=== PATIENT | female | born 1945 | race Caucasian/White ===

== ENCOUNTER → 2018-02-10 13:48 | Outpatient (CLI) | payer MEDICARE, OTHER, SELFPAY ==
--- NOTE | 2018-02-10 | DI.MG.S_ITS ---
BILATERAL DIGITAL SCREENING MAMMOGRAM 3D/2D WITH CAD POST LUMPECTOMY: 02/10/2018 CLINICAL: Routine screening. Personal history of right breast cancer. Comparison is made to exams dated: 12/07/2016 mammogram, 11/21/2015 mammogram, and 11/18/2014 mammogram - [facility]. The tissue of both breasts is heterogeneously dense. This may lower the sensitivity of mammography. Current study was also evaluated with a Computer Aided Detection (CAD) system. There are benign post operative findings in the right breast. No significant masses, calcifications, or other findings are seen in either breast. There has been no significant interval change. IMPRESSION: There is no mammographic evidence of malignancy. A 1 year screening mammogram is recommended. This exam was interpreted at Station ID: [id number]. NOTE: For mammograms, a report in lay terms will be sent to the patient. Approximately 15% of breast malignancies will not be visualized mammographically. In the management of a palpable breast mass, a negative mammogram must not discourage biopsy of a clinically suspicious lesion. Electronically Signed By: Billy vallecillo/nahid:02/10/2018 18:31:40 copy to: Cristopher Villa letter sent: Normal Exam ACR BI-RADS Category 2: Benign Finding(s) 3342F
== END ==
PROVIDERS: Family Provider Obstetrics & Gynecology; PCP Internal Medicine; Visit Provider Internal Medicine
DX: Z12.31 Encounter for screening mammogram for malignant neoplasm of breast (principal); Z80.3 Family history of malignant neoplasm of breast
CPT/HCPCS: 77063; 77067

== ENCOUNTER → 2019-03-24 10:10 | Outpatient (CLI) | payer MEDICARE, OTHER, SELFPAY | PROVIDERS: Family Provider Obstetrics & Gynecology; PCP Internal Medicine; Referring Provider Internal Medicine; Visit Provider Internal Medicine | DX: M85.852 Other specified disorders of bone density and structure, left thigh (principal); Z78.0 Asymptomatic menopausal state; Z85.3 Personal history of malignant neoplasm of breast | CPT/HCPCS: 77080 ==

== ENCOUNTER → 2019-03-26 11:44 | Outpatient (CLI) | payer MEDICARE, OTHER, SELFPAY ==
--- NOTE | 2019-03-26 11:52 | DI.MG.S_ITS ---
Patient Name: KINSEY SMALL date: 1945 Sex: F Attending Physician: Tha Indications: Date: 03/26/2019 11:52 At the request of: JOHN LICEA Procedure: MM screening mammo BI BILATERAL DIGITAL SCREENING MAMMOGRAM 3D/2D WITH CAD POST LUMPECTOMY: 03/26/2019 CLINICAL: Routine screening. Personal history of breast cancer. Comparison is made to exams dated: 02/10/2018 mammogram, 12/07/2016 mammogram, 11/21/2015 mammogram, and 11/18/2014 mammogram - [facility]. The tissue of both breasts is heterogeneously dense. This may lower the sensitivity of mammography. Current study was also evaluated with a Computer Aided Detection (CAD) system. There are multiple fine calcifications in the right breast inferior lateral quadrant middle depth. These are more prominent. There is an irregular focal asymmetry in the superior medial left breast at posterior depth. There also is an oval asymmetry in the left breast posterior depth inferior region seen on the mediolateral oblique view only. No other significant masses or calcifications are seen in either breast. There are postsurgical changes of the right breast. IMPRESSION: INCOMPLETE: NEEDS ADDITIONAL IMAGING EVALUATION 1) The multiple fine calcifications in the right breast inferior lateral quadrant middle depth are indeterminate. Magnification views as well as additional views with possible ultrasound are recommended. 2) The irregular focal asymmetry in the superior medial left breast at posterior depth is indeterminate. Additional views with possible ultrasound are recommended. 3) The oval asymmetry in the left breast posterior depth inferior region seen on the mediolateral oblique view only is indeterminate. Additional views with possible ultrasound are recommended. This exam was interpreted at Station ID: [id number]. Continued Report - Page 2 of 2 Patient Name: KINSEY SMALL date: 1945 Sex: F Attending Physician: Tha Indications: Date: 03/26/2019 11:52 At the request of: JOHN LICEA Procedure: MM screening mammo BI NOTE: For mammograms, a report in lay terms will be sent to the patient. Approximately 15% of breast malignancies will not be visualized mammographically. In the management of a palpable breast mass, a negative mammogram must not discourage biopsy of a clinically suspicious lesion. Electronically Signed By: Billy Daley M.D. ecl/:03/26/2019 18:53:20 letter sent: Additional Imaging Needed ACR BI-RADS Category 0: Incomplete 3340F
[2019-03-26 13:24] LABS: Aspartate Aminotransferase 24 IU/L (14-36); BUN Creatinine Ratio 21.4 (6-22); Blood Urea Nitrogen 15 mg/dL (7-17); Calcium 10.2 mg/dL (8.4-10.2); Carbon Dioxide 27 mmol/L (22-32); Chloride 99 mmol/L (98-107); Cholesterol 209 mg/dL (140-199); Estimated Glomerular Filt Rate > 60.0 mL/min (>60); Glucose 106 mg/dL (80-110); HDL Cholesterol 60 mg/dL (40-60); HEMOLYSIS < 15 (0-50); LDL Cholesterol Calculated 120 mg/dL (<100); Potassium 4.2 mmol/L (3.4-5.1); Sodium 136 mmol/L (137-145); Triglycerides 146 mg/dL (35-150)
[2019-03-26 14:13] LABS: Vitamin B12 490 pg/mL (239-931)
[2019-03-26 14:17] LABS: TSH w/ Reflex to FT4 1.35 uIU/mL (0.47-4.68)
[2019-03-26 14:58] LABS: Hemoglobin A1C% w Est Avg Glu 5.1 % (4.0-6.0)
[2019-03-31 23:31] LABS: Albumin 4.1 g/dL (3.8-4.8); Alpha 1 Globulin 0.3 g/dL (0.2-0.3); Alpha 2 Globulin 0.7 g/dL (0.5-0.9); Beta 1 Globulin 0.4 g/dL (0.4-0.6); Gamma Globulin 1.3 g/dL (0.8-1.7); Protein, Total 7.1 g/dL (6.1-8.1)
== END ==
PROVIDERS: Family Provider Obstetrics & Gynecology; PCP Internal Medicine; Referring Provider Internal Medicine; Visit Provider Internal Medicine
DX: Z12.31 Encounter for screening mammogram for malignant neoplasm of breast (principal); M89.9 Disorder of bone, unspecified; E78.2 Mixed hyperlipidemia; D47.2 Monoclonal gammopathy; R73.01 Impaired fasting glucose; E03.9 Hypothyroidism, unspecified; E53.8 Deficiency of other specified B group vitamins
CPT/HCPCS: 36415; 77063; 77067; 80048; 80061; 82607; 83036; 84155; 84165; 84443; 84450

== ENCOUNTER → 2019-04-13 09:12 | Outpatient (CLI) | payer MEDICARE, OTHER, SELFPAY ==
--- NOTE | 2019-04-13 | DI.US.S_ITS ---
LIMITED ULTRASOUND OF LEFT BREAST: 04/13/2019 CLINICAL: Abn mammo. Comparison is made to exams dated: 04/13/2019 mammogram, 03/26/2019 mammogram, 02/10/2018 mammogram, 12/07/2016 mammogram, 11/21/2015 mammogram, and 11/18/2014 mammogram - [facility]. Ultrasound of the left breast 2-4 o'clock region was performed. No significant abnormalities were seen sonographically in the left breast. Specifically, no finding to correspond to the patient's left breast mammographic abnormality. IMPRESSION: SUSPICIOUS OF MALIGNANCY There is no sonographic correlate to the patient's left breast screening abnormality, however 6 month follow up mammogram is recommended to document stability. The right breast calcifications are suspicious for malignancy and stereotactic biopsy of the right breast is recommended. Findings and recommendations were discussed with the patient in person by Dr. Canseco at time of exam. This exam was interpreted at Station ID: [id number]. Electronically Signed By: Ashanti feng/:04/13/2019 16:23:11 letter sent: Biopsy Required Ultrasound BI-RADS: 4 Suspicious for malignancy
--- NOTE | 2019-04-13 | DI.MG.S_ITS ---
BILATERAL DIGITAL DIAGNOSTIC MAMMOGRAM 3D/2D WITH ADDITIONAL VIEWS POST LUMPECTOMY: 04/13/2019 CLINICAL: Additional evaluation requested from prior study. Comparison is made to exams dated: 03/26/2019 mammogram, 02/10/2018 mammogram, and 12/07/2016 mammogram - [facility]. The tissue of both breasts is heterogeneously dense. This may lower the sensitivity of mammography. There are new diffuse segmental fine calcifications in the right breast at 6 o'clock middle depth. These are seen in additional views. There is an irregular asymmetry in the left breast at 11 o'clock posterior depth. This is less prominent and not definitely seen in additional views. With focal spot compression, and additional views, the left breast posterior inferior abnormality seen on screening mammography resolves. No other significant masses or calcifications are seen in either breast. IMPRESSION: INCOMPLETE: NEEDS ADDITIONAL IMAGING EVALUATION The new diffuse segmental fine calcifications in the right breast at 6 o'clock middle depth are suspicious of malignancy. A right breast stereotactic biopsy is recommended. The irregular asymmetry in the left breast at 11 o'clock posterior depth is indeterminate. An ultrasound is recommended. This was performed immediately following this exam. This exam was interpreted at Station ID: [id number]. NOTE: For mammograms, a report in lay terms will be sent to the patient. Approximately 15% of breast malignancies will not be visualized mammographically. In the management of a palpable breast mass, a negative mammogram must not discourage biopsy of a clinically suspicious lesion. Electronically Signed By: Ashanti feng/:04/13/2019 16:20:59 ACR BI-RADS Category 0: Incomplete 3340F
== END ==
PROVIDERS: Family Provider Obstetrics & Gynecology; PCP Internal Medicine; Referring Provider Internal Medicine; Visit Provider Internal Medicine
DX: R92.8 Other abnormal and inconclusive findings on diagnostic imaging of breast (principal); R92.1 Mammographic calcification found on diagnostic imaging of breast; N64.89 Other specified disorders of breast
CPT/HCPCS: 76642; 77066; G0279

== ENCOUNTER 2019-10-14 11:25 | Day surgery (SDC) | payer MEDICARE, OTHER, SELFPAY ==
[2019-10-14] VITALS (8 sets, daily range): BP systolic 87–119; BP diastolic 58–71; PULSE 61–67; RESP 10–15; TEMP 36.3–36.7; O2SAT 93–98; BMI 22.3
[2019-10-14 12:47] LABS: COVID19 -Nasal RAPID Negative (Negative)
[2019-10-14] MEDS: SODIUM CHLORIDE 0.9% 1,000 ML 84 ML IV (13:47)
--- NOTE | 2019-10-14 13:47 | SUR.PREOP ---
Patient Covid-19 test negative. Pre-op complete.
--- NOTE | 2019-10-14 14:14 | PM.HP.1 ---
History of Present Illness History of Present Illness Date Patient Seen: 10/14/19 Chief complaint: SDC Narrative: Screening Patient History Family & Social History Social History: household members family Tobacco & Substance use: Smoking Status Never smoker alcohol intake never Substance Use Type does not use Meds Home Medications and Allergies Home Medications Medication Instructions Recorded Confirmed Type alendronate [Fosamax] 70 mg PO Q7D@0730 #0 09/11/11 10/14/19 History aspirin 81 mg PO QDAY #0 09/11/11 10/14/19 History pravastatin 40 mg/day 10/14/19 History Allergies Allergy/AdvReac Type Severity Reaction Status Date / Time No Known Drug Allergies Allergy Verified 10/14/19 13:09 Exam Vital Signs (past 8 hours): - 10/14/19 13:13 Temperature 98.1 F Pulse Rate 67 Respiratory Rate 14 Blood Pressure 119/71 Pulse Oximetry 98 Oxygen Delivery Method Room Air Narrative Exam Narrative: Oropharynx free of lesions Chest clear to auscultation percussion Cardiac exam reveals no S3 or murmur Objective Labs Labs: Laboratory Results - last 24 hr 10/14/19 11:45 COVID-19 PCR Negative Assessment & Plan Assessment & Plan narrative: History of polyps with need for follow-up colonoscopy. Risks, benefits, alternatives have been explained.
--- NOTE | 2019-10-14 14:19 | PM.OP.ENDO ---
Operative Date/Time/Diagnoses Date of procedure: 10/14/19 Pre-op diagnosis: See indication and findings Procedure & Clinicians Study performed: Colonoscopy Same procedure as scheduled: Yes Indications: History of polyps Surgeon: Page López Procedure Notes Procedure in detail: After informed consent was obtained the patient was placed in left lateral decubitus position. Video colonoscope was introduced the rectum and slowly advanced cecum. Preparation was good. On slow withdrawal mucosa was carefully examined. Scope was removed. The patient tolerated procedure well. Blood loss none Complications none Sedation Total sedation time 17 minutes Versed 4 mg fentanyl 200 right g IV titration Findings 1. Scattered left-sided diverticulosis 2. Otherwise negative colonoscopy to cecum She will need follow-up colonoscopy in 7-10 years.
[2019-10-14] MEDS: fentaNYL 250 MCG/5 ML INJ IV (14:21)
[2019-10-14] MEDS: MIDAZOLAM 5 MG/5 ML VIAL IV (14:21)
== END 2019-10-14 16:05 | disposition home or self-care (01) ==
PROVIDERS: Family Provider Obstetrics & Gynecology; PCP Internal Medicine; Referring Provider Internal Medicine; Visit Provider Internal Medicine Gastroenterology
PROC: 0DJD8ZZ Inspection of Lower Intestinal Tract, Via Natural or Artificial Opening Endoscopic (ICD-10-PCS; CPT 45378; principal; 2019-10-14 14:00)
DX: Z12.11 Encounter for screening for malignant neoplasm of colon (principal); Z86.010 Personal history of colon polyps; K57.30 Diverticulosis of large intestine without perforation or abscess without bleeding
CPT/HCPCS: G0105; 87635; J2250; J3010

== ENCOUNTER → 2020-03-15 11:10 | Outpatient (CLI) | payer MEDICARE, OTHER, SELFPAY ==
[2020-03-15] MEDS: COVID-19 VACC #1, MRNA(MOD) 100 MCG/0.5 ML VIAL IM (11:20)
== END ==
PROVIDERS: Family Provider Obstetrics & Gynecology; PCP Internal Medicine; Visit Provider Internal Medicine
DX: Z23 Encounter for immunization (principal)
CPT/HCPCS: 0011A; 91301

== ENCOUNTER → 2020-04-12 11:09 | Outpatient (CLI) | payer MEDICARE, OTHER, SELFPAY ==
[2020-04-12] MEDS: COVID-19 VACC #2, MRNA(MOD) 100 MCG/0.5 ML VIAL IM (11:23)
== END ==
PROVIDERS: Family Provider Obstetrics & Gynecology; PCP Internal Medicine; Visit Provider Internal Medicine
DX: Z23 Encounter for immunization (principal)
CPT/HCPCS: 0012A; 91301

== ENCOUNTER → 2020-07-13 18:30 | Outpatient (ROUT) | payer MEDICARE, OTHER, SELFPAY ==
[2020-07-13 18:58] LABS: Aspartate Aminotransferase 30 IU/L (14-36); BUN Creatinine Ratio 23.4 (6-22); Blood Urea Nitrogen 15 mg/dL (7-17); Calcium 10.2 mg/dL (8.4-10.2); Carbon Dioxide 27 mmol/L (22-32); Chloride 104 mmol/L (98-107); Cholesterol 197 mg/dL (140-199); Estimated Glomerular Filt Rate > 60.0 mL/min (>60); Glucose 89 mg/dL (80-110); HDL Cholesterol 76 mg/dL (40-60); HEMOLYSIS < 15 (0-50); LDL Cholesterol Calculated 98 mg/dL (<100); Potassium 4.2 mmol/L (3.4-5.1); Sodium 139 mmol/L (137-145); Triglycerides 114 mg/dL (35-150)
== END ==
PROVIDERS: Family Provider Obstetrics & Gynecology; PCP Internal Medicine; Visit Provider Internal Medicine
DX: E78.2 Mixed hyperlipidemia (principal)
CPT/HCPCS: 80048; 80061; 84450

== ENCOUNTER → 2020-11-23 11:40 | Outpatient (CLI) | payer MEDICARE, OTHER, SELFPAY ==
--- NOTE | 2020-11-23 11:43 | DI.MG.S_ITS ---
BILATERAL DIGITAL SCREENING MAMMOGRAM 3D/2D WITH CAD: 11/23/2020 CLINICAL: Routine screening. Breast cancer. Comparison is made to exams dated: 10/09/2019 mammogram, [place] [facility] [place]13[place]2019 mammogram, 03/26/2019 mammogram, 02/10/2018 mammogram - [facility], and 10/09/2019 [place] [facility] [place] The tissue of both breasts is heterogeneously dense. This may lower the sensitivity of mammography. Current study was also evaluated with a Computer Aided Detection (CAD) system. There are benign post operative findings in the right breast. There also is a biopsy clip in the left breast. No significant masses, calcifications, or other findings are seen in either breast. There has been no significant interval change. IMPRESSION: BENIGN There is no mammographic evidence of malignancy. A 1 year screening mammogram is recommended. This exam was interpreted at Station ID: [id number]. NOTE: For mammograms, a report in lay terms will be sent to the patient. Approximately 15% of breast malignancies will not be visualized mammographically. In the management of a palpable breast mass, a negative mammogram must not discourage biopsy of a clinically suspicious lesion. Electronically Signed By: Travon navarrete/nahid:11/24/2020 08:33:52 letter sent: Normal Exam ACR BI-RADS Category 2: Benign Finding(s) 3342F
== END ==
PROVIDERS: Family Provider Obstetrics & Gynecology; PCP Internal Medicine; Referring Provider Internal Medicine; Visit Provider Internal Medicine
DX: Z12.31 Encounter for screening mammogram for malignant neoplasm of breast (principal); Z85.3 Personal history of malignant neoplasm of breast
CPT/HCPCS: 77063; 77067

== ENCOUNTER → 2020-12-30 11:32 | Outpatient (CLI) | payer MEDICARE, OTHER, SELFPAY ==
[2020-12-30] MEDS: COVID-19 VACC #3, MRNA(MOD) 50 MCG/0.25 ML VIAL IM (11:41)
== END ==
PROVIDERS: Family Provider Obstetrics & Gynecology; PCP Internal Medicine; Visit Provider Internal Medicine
DX: Z23 Encounter for immunization (principal)
CPT/HCPCS: 0013A; 91301

== ENCOUNTER → 2021-10-30 10:09 | Outpatient (CLI) | payer MEDICARE, OTHER, SELFPAY ==
[2021-10-30 11:13] LABS: Hemoglobin A1C% w Est Avg Glu 5.2 % (4.0-6.0)
[2021-10-30 11:17] LABS: Hematocrit 38.4 % (36-46); Hemoglobin 13.2 g/dL (12.0-16.0); Mean Corpuscular HGB Conc 34.4 % (30-36); Mean Corpuscular Hemoglobin 30.1 PG (26-34); Mean Corpuscular Volume 87.6 fL (80-100); Platelet Count 225 X10^3/uL (150-400); Red Blood Cell Count 4.38 X10^6/uL (4.0-5.2); Red Cell Distribution Width 13.4 % (11.6-14.8); White Blood Cell Count 4.5 X10^3/uL (4.5-11.0)
[2021-10-30 11:52] LABS: Alanine Aminotransferase 16 IU/L (<35); Albumin 4.3 g/dL (3.5-5.0); Albumin Globulin Ratio 1.3 (1.0-2.8); Alkaline Phosphatase 47 U/L (38-126); Aspartate Aminotransferase 31 IU/L (14-36); Bilirubin Total 0.9 mg/dL (0.2-1.3); Blood Urea Nitrogen 12 mg/dL (7-17); Calcium 9.4 mg/dL (8.4-10.2); Carbon Dioxide 25 mmol/L (22-32); Chloride 98 mmol/L (98-107); Cholesterol 193 mg/dL (140-199); Estimated Glomerular Filt Rate > 60 mL/min (>60); Globulin 3.3 g/dL (1.7-4.1); Glucose 85 mg/dL (80-110); HDL Cholesterol 69 mg/dL (40-60); HEMOLYSIS < 15 (0-50); LDL Cholesterol Calculated 113 mg/dL (<100); Potassium 4.1 mmol/L (3.4-5.1); Sodium 134 mmol/L (137-145); Total Protein 7.6 g/dL (6.3-8.2); Triglycerides 56 mg/dL (35-150)
[2021-10-30 12:17] LABS: TSH w/ Reflex to FT4 1.77 uIU/mL (0.47-4.68)
[2021-10-30 12:31] LABS: Vitamin B12 368 pg/mL (239-931)
[2021-10-30 16:50] LABS: Vitamin D 25 Hydroxy (D3) 32.7 ng/mL (30.0-100.0)
[2021-11-01 13:08] LABS: Albumin 3.9 g/dL (2.9-4.4); Alpha-1-Globulin 0.2 g/dL (0.0-0.4); Alpha-2-Globulin 0.6 g/dL (0.4-1.0); Gamma Globulin 1.1 g/dL (0.4-1.8); Globulin Total 2.8 g/dL (2.2-3.9); Protein, Total 6.7 g/dL (6.0-8.5)
== END ==
PROVIDERS: Family Provider Obstetrics & Gynecology; PCP Internal Medicine; Referring Provider Internal Medicine; Visit Provider Internal Medicine
DX: E78.2 Mixed hyperlipidemia (principal); R73.01 Impaired fasting glucose; M85.80 Other specified disorders of bone density and structure, unspecified site; E53.8 Deficiency of other specified B group vitamins; G62.9 Polyneuropathy, unspecified; R77.9 Abnormality of plasma protein, unspecified
CPT/HCPCS: 36415; 80053; 80061; 82306; 82607; 83036; 84155; 84165; 84443; 85027

== ENCOUNTER → 2021-12-06 14:48 | Outpatient (CLI) | payer MEDICARE, OTHER, SELFPAY ==
--- NOTE | 2021-12-06 | DI.MG.S_ITS ---
BILATERAL DIGITAL SCREENING MAMMOGRAM 3D/2D WITH CAD: 12/06/2021 CLINICAL: Routine screening. Personal history of right breast cancer. Comparison is made to exams dated: 11/23/2020 mammogram - [facility], 10/09/2019 mammogram, and 09/25/2019 mammogram - [facility]. Both breasts are heterogeneously dense, which may obscure small masses (category c / 51-75% glandular tissue). Current study was also evaluated with a Computer Aided Detection (CAD) system. There are benign calcifications in both breasts. There also are benign post operative findings and biopsy clip in the right breast. Additionally, there is a biopsy clip in the left breast. No significant masses, calcifications, or other findings are seen in either breast. There has been no significant interval change. IMPRESSION: BENIGN There is no mammographic evidence of malignancy. A 1 year screening mammogram is recommended. This exam was interpreted at Station ID: [id number]. NOTE: For mammograms, a report in lay terms will be sent to the patient. Approximately 15% of breast malignancies will not be visualized mammographically. In the management of a palpable breast mass, a negative mammogram must not discourage biopsy of a clinically suspicious lesion. Electronically Signed By: Ashanti feng/nahid:12/06/2021 17:22:27 letter sent: Normal Exam ACR BI-RADS Category 2: Benign Finding(s) 3342F
== END ==
PROVIDERS: Family Provider Obstetrics & Gynecology; PCP Internal Medicine; Referring Provider Internal Medicine; Visit Provider Internal Medicine
DX: Z12.31 Encounter for screening mammogram for malignant neoplasm of breast (principal); Z85.3 Personal history of malignant neoplasm of breast
CPT/HCPCS: 77063; 77067

== ENCOUNTER → 2022-02-21 10:13 | Outpatient (CLI) | payer MEDICARE, OTHER, SELFPAY ==
--- NOTE | 2022-02-21 10:15 | DI.US.S_ITS ---
ULTRASOUND OF RIGHT BREAST AND AXILLA: 02/21/2022 CLINICAL: Palpable right breast lump. Comparison is made to exams dated: 02/21/2022 mammogram, 12/06/2021 mammogram, 11/23/2020 mammogram - [facility], 09/25/2019 ultrasound, and 09/25/2019 mammogram - [facility]. Color flow and real-time ultrasound of the right breast axilla were performed. 1.5 x 0.9 x 0.8cm dystrophic calcification is seen corresponding to mammographic finding at site of palpable abnormality, seen to be stable from prior mammogram. No significant abnormalities were seen sonographically in the right axilla. IMPRESSION: BENIGN There is no sonographic evidence of malignancy. Stable 1.5cm dystrophic calcification corresponding to palpable abnormality and mammogram. Return to annual mammogram screening schedule is recommended. Patient was advised to return for re-imaging if she or her doctor feels any other new or enlarging abnormality on clinical exam. This exam was interpreted at Station ID: [id number]. Electronically Signed By: Raúl Carroll M.D. lc/:02/21/2022 11:12:28 letter sent: Clinical Evaluation Ultrasound BI-RADS: 2 Benign
--- NOTE | 2022-02-21 10:34 | DI.MG.S_ITS ---
Procedure: MM diagnostic mammo unilat RT UNILATERAL RIGHT DIGITAL DIAGNOSTIC MAMMOGRAM 3D/2D: 02/21/2022 CLINICAL: Palpable right breast lump. Comparison is made to exams dated: 11/23/2020 mammogram - [facility], 10/09/2019 mammogram, 09/25/2019 ultrasound, 09/25/2019 ultrasound, and 09/25/2019 mammogram - [facility]. The right breast is heterogeneously dense, which may obscure small masses (category c / 51-75% glandular tissue). The patient is status post lumpectomy right breast. The right breast has post- operative findings. No significant masses, calcifications, or other findings are seen in the breast. IMPRESSION: INCOMPLETE: NEEDS ADDITIONAL IMAGING EVALUATION Corresponding to the palpable marker is a 1.5cm area of dystrophic calcification, stable from prior imaging, adjacent to the lumpectomy changes. Ultrasound is recommended, report to follow. This exam was interpreted at Station ID: [id number]. NOTE: For mammograms, a report in lay terms will be sent to the patient. Approximately 15% of breast malignancies will not be visualized mammographically. In the management of a palpable breast mass, a negative mammogram must not discourage biopsy of a clinically suspicious lesion. Electronically Signed By: Raúl Carroll M.D. lc/:02/22/2022 11:03:41 Continued Report - Page 2 of 2 Patient Name: KINSEY SMALL date: 1945 Sex: F Attending Physician: Tha Indications: Date: 02/21/2022 10:18 At the request of: JOHN LICEA Procedure: MM diagnostic mammo unilat RT ACR BI-RADS Category 0: Incomplete 3340F
== END ==
PROVIDERS: Family Provider Obstetrics & Gynecology; PCP Internal Medicine; Referring Provider Internal Medicine; Visit Provider Internal Medicine
DX: R92.1 Mammographic calcification found on diagnostic imaging of breast (principal); R92.8 Other abnormal and inconclusive findings on diagnostic imaging of breast; N63.10 Unspecified lump in the right breast, unspecified quadrant; Z85.3 Personal history of malignant neoplasm of breast
CPT/HCPCS: 76642; 77065; G0279

== ENCOUNTER → 2023-07-30 11:48 | Outpatient (CLI) | payer MEDICARE, OTHER, SELFPAY ==
[2023-07-30 14:51] LABS: Hematocrit 37.9 % (36-46); Hemoglobin 12.8 g/dL (12.0-16.0); Mean Corpuscular HGB Conc 33.8 % (30-36); Mean Corpuscular Hemoglobin 30.1 PG (26-34); Mean Corpuscular Volume 89.1 fL (80-100); Platelet Count 247 X10^3/uL (150-400); Red Blood Cell Count 4.26 X10^6/uL (4.0-5.2); Red Cell Distribution Width 13.4 % (11.6-14.8); White Blood Cell Count 5.8 X10^3/uL (4.5-11.0)
[2023-07-30 15:08] LABS: Alanine Aminotransferase 16 IU/L (<35); Albumin 4.3 g/dL (3.5-5.0); Albumin Globulin Ratio 1.6 (1.0-2.8); Alkaline Phosphatase 52 U/L (38-126); Aspartate Aminotransferase 25 IU/L (14-36); BUN Creatinine Ratio 16.7 (6-22); Bilirubin Total 0.6 mg/dL (0.2-1.3); Blood Urea Nitrogen 13 mg/dL (7-17); Calcium 9.7 mg/dL (8.4-10.2); Carbon Dioxide 29 mmol/L (22-32); Chloride 106 mmol/L (98-107); Cholesterol 201 mg/dL (140-199); Estimated Glomerular Filt Rate > 60 mL/min (>60); Globulin 2.7 g/dL (1.7-4.1); Glucose 77 mg/dL (80-110); HDL Cholesterol 77 mg/dL (40-60); HEMOLYSIS < 15 (0-50); LDL Cholesterol Calculated 109 mg/dL (<100); Potassium 4.8 mmol/L (3.4-5.1); Sodium 140 mmol/L (137-145); Triglycerides 77 mg/dL (35-150)
== END ==
PROVIDERS: Family Provider Obstetrics & Gynecology; PCP Internal Medicine; Referring Provider Internal Medicine; Visit Provider Internal Medicine
DX: E78.2 Mixed hyperlipidemia (principal); Z85.3 Personal history of malignant neoplasm of breast; M85.80 Other specified disorders of bone density and structure, unspecified site
CPT/HCPCS: 36415; 80053; 80061; 85027

== ENCOUNTER → 2023-08-12 14:11 | Outpatient (CLI) | payer MEDICARE, OTHER, SELFPAY ==
--- NOTE | 2023-08-12 14:14 | DI.RAD.S_ITS ---
PROCEDURE: XR DEXA AXIAL SKELETON INDICATIONS: postmenopausal COMPARISON: [facility], CR, XR DEXA AXIAL SKELETON, 03/24/2019, 10:30. FINDINGS: Lumbar Spine: Bone mineral density 0.931 g/cm2, T score -0.4, compared to -1.5. This is measuring L1-L2 only for direct comparison to prior exam. Left Hip: Bone mineral density 0.754 g/cm2, T score -1.5, unchanged. Left Femoral Neck: Bone mineral density 0.63 a g/cm2, T score -1.9, compared to -2.0. Right Hip: Bone mineral density 0.711 g/cm2, T score -1.9, compared to -1.8. Right Femoral Neck: Bone mineral density 0.625 g/cm2, T score -2.0, compared to -1.9. Fracture Risk Calculation (when applicable): 10-year fracture risk of a major osteoporotic fracture 13% and of a hip fracture 3.5% compared to 11.7% and 2.8% respectively. (T score greater or equal to -1.0 to: NORMAL) (T score from -1.1 to -2.4: OSTEOPENIA) (T score less than or equal to -2.5: OSTEOPOROSIS) IMPRESSION: Relatively stable exam demonstrating the most prominent osteopenia within the left femoral neck, right hip/femoral neck. Lumbar spine shows improved bone mineral density. Follow-up guidelines as follows: Osteoporosis: Consider a repeat DEXA and Vertebral Fracture Assessment (VFA) exam in 2 years or sooner if medically necessary, to reassess this patient's status. Osteopenia: Consider a repeat DEXA in 2-3 years to reassess this patient's status, or if there is a new clinical indication. Normal: Consider a repeat DEXA in 5 years or sooner, or if there is a new clinical indication. All treatment decisions require clinical judgment and consideration of individual patient factors, including patient preferences, comorbidities, previous drug use, risk factors not captured in the FRAX model (e.g., frailty, falls, vitamin D deficiency, increased bone turnover, interval significant decline in bone density ) and possible under- or over-estimation of fracture risk by FRAX. In addition, the NOF Guide recommends that FDA-approved medical therapies be considered in postmenopausal women and men age >= 50 years with a: * Hip or vertebral (clinical or morphometric) fracture * T-score of <=-2.5 at the spine or hip * Ten-year fracture probability by FRAX of >= 3% for hip fracture or >=20% for major osteoporotic fracture. People with diagnosed cases of osteoporosis or at high risk for fracture should have regular bone mineral density tests. For patients eligible for Medicare, routine testing is allowed once every 2 years. The testing frequency can be increased to one year for patients who have rapidly progressing disease, those who are receiving or discontinuing medical therapy to restore bone mass, or have additional risk factors. Dictated by: Amanda Nuñez M.D. on 08/12/2023 at 17:30 Approved by: Amanda Nuñez M.D. on 08/12/2023 at 17:33
--- NOTE | 2023-08-12 14:14 | DI.MG.S_ITS ---
BILATERAL DIGITAL SCREENING MAMMOGRAM 3D/2D WITH CAD: 08/12/2023 CLINICAL: Routine screening. Personal history of right breast cancer. Comparison is made to exams dated: 12/06/2021 mammogram, 11/23/2020 mammogram - [facility], and 09/25/2019 mammogram - [facility]. Both breasts are heterogeneously dense, which may obscure small masses (category c / 51-75% glandular tissue). Current study was also evaluated with a Computer Aided Detection (CAD) system. There are benign calcifications in both breasts. There also are benign post operative findings and biopsy clip in the right breast. Additionally, there is a biopsy clip in the left breast. No significant masses, calcifications, or other findings are seen in either breast. There has been no significant interval change. IMPRESSION: BENIGN There is no mammographic evidence of malignancy. A 1 year screening mammogram is recommended. This exam was interpreted at Station ID: [id number]. NOTE: For mammograms, a report in lay terms will be sent to the patient. Approximately 15% of breast malignancies will not be visualized mammographically. In the management of a palpable breast mass, a negative mammogram must not discourage biopsy of a clinically suspicious lesion. Electronically Signed By: Raúl mora/nahid:08/12/2023 15:04:29 letter sent: Normal Exam ACR BI-RADS Category 2: Benign Finding(s) 3342F
== END ==
PROVIDERS: Family Provider Obstetrics & Gynecology; PCP Internal Medicine; Referring Provider Internal Medicine; Visit Provider Internal Medicine
DX: M85.89 Other specified disorders of bone density and structure, multiple sites (principal); Z12.31 Encounter for screening mammogram for malignant neoplasm of breast; Z85.3 Personal history of malignant neoplasm of breast; R92.333 Mammographic heterogeneous density, bilateral breasts
CPT/HCPCS: 77063; 77067; 77080

== ENCOUNTER → 2024-09-23 16:21 | Outpatient (CLI) | payer MEDICARE, OTHER, SELFPAY ==
[2024-09-23 16:54] LABS: Hematocrit 39.4 % (36-46); Hemoglobin 13.4 g/dL (12.0-16.0); Mean Corpuscular HGB Conc 34.0 % (30-36); Mean Corpuscular Hemoglobin 30.3 PG (26-34); Mean Corpuscular Volume 89.2 fL (80-100); Platelet Count 223 X10^3/uL (150-400)
[2024-09-23 17:35] LABS: Blood Urea Nitrogen 14 mg/dL (7-17); Calcium 10.3 mg/dL (8.4-10.2); Carbon Dioxide 28 mmol/L (22-32); Chloride 97 mmol/L (98-107); Cholesterol 203 mg/dL (140-199); Estimated Glomerular Filt Rate > 60 mL/min (>60); Glucose 167 mg/dL (70-99); HDL Cholesterol 80 mg/dL (40-60); HEMOLYSIS < 15 (0-50); Potassium 4.7 mmol/L (3.4-5.1); Sodium 133 mmol/L (137-145); Triglycerides 76 mg/dL (35-150)
[2024-09-23 18:06] LABS: TSH w/ Reflex to FT4 1.24 uIU/mL (0.47-4.68)
[2024-09-23 21:51] LABS: Vitamin B12 Reflex MMA if <400 535 pg/mL (239-931)
== END ==
PROVIDERS: PCP Internal Medicine; Referring Provider Internal Medicine; Visit Provider Internal Medicine
DX: E78.2 Mixed hyperlipidemia (principal); Z85.3 Personal history of malignant neoplasm of breast; E53.8 Deficiency of other specified B group vitamins
CPT/HCPCS: 36415; 80048; 80061; 82607; 84443; 84450; 85027